=== PATIENT | male | born 2000 | race Caucasian/White ===

== ENCOUNTER 2023-02-27 02:37 | Emergency (ER) | payer OTHER, SELFPAY ==
[2023-02-27 02:45] VITALS: BP 147/69; PULSE 86; O2SAT 97
[2023-02-27 02:49] VITALS: BP 147/69; PULSE 84; RESP 16; TEMP 36.6; O2SAT 98; BMI 21.2
[2023-02-27 02:59] VITALS: PULSE 82; RESP 15; O2SAT 99
[2023-02-27 03:00] VITALS: BP 119/72; PULSE 82; RESP 16; O2SAT 97
[2023-02-27 03:01] LABS: Add Manual Diff / Slide Review NO; Basophils Absolute Auto 0 /uL (0-100); Basophils Percent Auto 0.5 % (0-2); Eosinophils Absolute Auto 500 /uL (0-450); Eosinophils Percent Auto 5.9 % (2-4); Hematocrit 43.8 % (41-53); Hemoglobin 15.1 g/dL (13.5-17.5); Lymphocytes Absolute Auto 2500 /uL (1100-4500); Lymphocytes Percent Auto 31.6 % (25-40); Mean Corpuscular HGB Conc 34.6 % (30-36); Mean Corpuscular Hemoglobin 29.1 PG (26-34); Mean Corpuscular Volume 84.1 fL (80-100); Monocytes Absolute Auto 900 /uL (0-900); Monocytes Percent Auto 11.3 % (3-14); Neutrophils Absolute Auto 4000 /uL (1500-7000); Neutrophils Percent Auto 50.7 % (50-75); Platelet Count 262 X10^3/uL (150-400); Red Blood Cell Count 5.21 X10^6/uL (4.5-5.9); White Blood Cell Count 7.9 X10^3/uL (4.5-11.0)
[2023-02-27 03:12] LABS: BUN Creatinine Ratio 19.1 (6-22); Blood Urea Nitrogen 13 mg/dL (9-20); Calcium 9.7 mg/dL (8.4-10.2); Carbon Dioxide 28 mmol/L (22-32); Chloride 102 mmol/L (98-107); Estimated Glomerular Filt Rate > 60 mL/min (>60); Glucose 82 mg/dL (70-100); HEMOLYSIS < 15 (0-50); Magnesium 1.9 mg/dL (1.6-2.3); Potassium 3.7 mmol/L (3.4-5.1); Sodium 138 mmol/L (137-145)
--- NOTE | 2023-02-27 03:16 | ED.ARRPALP ---
HPI - Arrhythmia/Palpitations General Chief Complaint: Arrhythmia/Palpitations Stated Complaint: irregular heartbeat, chest tightness Time Seen by Provider: 02/27/23 02:53 Source: patient Mode of arrival: Ambulatory History of Present Illness HPI narrative: Patient is a 22-year-old otherwise healthy male who is here for evaluation of palpitations and chest tightness. He states that it has actually been going on for the past several weeks but becoming more progressive for the past couple days. No lightheadedness. No shortness of breath. He states his heart rate is normally in the 60s. He has not been evaluated for this prior to this evening. Related Data Allergies Allergy/AdvReac Type Severity Reaction Status Date / Time No Known Drug Allergies Allergy Verified 02/27/23 02:59 Review of Systems Cardiovascular Cardiovascular: Reports system reviewed and no additional complaints, except as documented Respiratory Respiratory: Reports system reviewed and no additional complaints, except as documented Gastrointestinal Gastrointestinal: Reports system reviewed and no additional complaints, except as documented Hematologic/Lymphatic On Anticoagulants: No Patient History tobacco type: vaping and smokeless tobacco alcohol intake frequency: a few times a month Substance Use Type: does not use Exam Initial Vital Signs Initial Vital Signs: Vital Signs Pulse Rate 86 02/27/23 02:45 Blood Pressure 147/69 H 02/27/23 02:45 Pulse Oximetry 97 02/27/23 02:45 Const General: cooperative, comfortable and No ill appearing HENMT Head: normal to inspection and normocephalic Resp Effort & Inspection: normal respiratory effort Auscultation: clear to auscultation bilaterally Cardio Rate: regular rate Rhythm: regular rhythm Skin General: no rashes or lesions noted Neuro General: patient alert, patient awake and moves all extremities Speech: speech normal Extrem General: No edema Course Orders Ordered: ED Orders 02/27/23 02:51 Basic Metabolic Panel Stat Complete Blood Count AUTO DIFF Stat Magnesium Stat 02/27/23 02:53 EKG-12 Lead Stat Vital Signs Vital signs: Vital Signs - 8 hr 02/27/23 02:45 02/27/23 02:45 02/27/23 02:49 Temperature 97.8 F Pulse Rate 86 84 Respiratory Rate 16 Blood Pressure 147/69 H 147/69 H Pulse Oximetry 97 98 Oxygen Delivery Method Room Air 02/27/23 02:59 02/27/23 03:00 12/29/23 03:00 Temperature Pulse Rate 82 82 Respiratory Rate 15 16 Blood Pressure 119/72 119/72 Pulse Oximetry 99 97 Oxygen Delivery Method Room Air 02/27/23 03:30 02/27/23 03:30 Temperature Pulse Rate 82 Respiratory Rate 25 H Blood Pressure 114/68 Pulse Oximetry 96 Oxygen Delivery Method MDM - Arrhythmia/Palpitations Lab Data Attestation: I reviewed the patient's lab results. 02/27/23 02:51 02/27/23 02:51 Labs: Lab Results 02/27/23 Range/Units 02:51 WBC 7.9 (4.5-11.0) X10^3/uL RBC 5.21 (4.5-5.9) X10^6/uL Hgb 15.1 (13.5-17.5) g/dL Hct 43.8 (41-53) % MCV 84.1 (80-100) fL MCH 29.1 (26-34) PG MCHC 34.6 (30-36) % RDW 14.0 (11.6-14.8) % Plt Count 262 (150-400) X10^3/uL Neut % (Auto) 50.7 (50-75) % Lymph % (Auto) 31.6 (25-40) % [place] % (Auto) 11.3 (3-14) % Eos % (Auto) 5.9 H (2-4) % Baso % (Auto) 0.5 (0-2) % Neut # (Auto) 4000 (4058-2864) /uL Lymph # (Auto) 2500 (1849-8638) /uL [place] # (Auto) 900 (0-900) /uL Eos # (Auto) 500 H (0-450) /uL Baso # (Auto) 0 (0-100) /uL Sodium 138 (137-145) mmol/L Potassium 3.7 (3.4-5.1) mmol/L Chloride 102 (98-107) mmol/L Carbon Dioxide 28 (22-32) mmol/L BUN 13 (9-20) mg/dL Creatinine 0.68 (0.66-1.25) mg/dL Estimated GFR > 60 (>60) mL/min BUN/Creatinine Ratio 19.1 (6-22) Glucose 82 (70-100) mg/dL Calcium 9.7 (8.4-10.2) mg/dL Magnesium 1.9 (1.6-2.3) mg/dL ECG Data Attestation: I personally reviewed and interpreted this ECG as follows: Interpretation: Sinus rhythm Ventricular rate 82 First-degree AV block NM interval [address] T wave changes MDM Narrative Medical decision making narrative: Patient has a heart rate in the 80s. He states that his baseline heart rate is normally less than that. He does have occasional PVCs. Appears to have a first-degree AV block on his EKG otherwise unremarkable. Electrolytes unremarkable. Patient has not passed out. Advised he contact his medical department to discuss follow-up and the indications for a Holter monitor. He was given return precautions. He expressed understanding and agreement. Discharge Plan Departure Patient Disposition: Home Clinical Impression: Palpitations, Premature ventricular beat Instructions: Premature Ventricular Beats Activity Restrictions/Additional Instructions: Recommend that you contact your medical department for follow-up to discuss the indication for a Holter monitor. Return to the emergency department for new symptoms Referrals: ProviderJony [Primary Care Provider] - Stand Alone Forms: Patient Portal/API
[2023-02-27 03:30] VITALS: BP 114/68; PULSE 82; RESP 25; O2SAT 96
== END 2023-02-27 03:46 | disposition home or self-care (01) ==
PROVIDERS: Emergency Provider Emergency Medicine
DX: R00.2 Palpitations (principal); I49.3 Ventricular premature depolarization
CPT/HCPCS: 36415; 80048; 83735; 85025; 93005; 99283; 99284